=== PATIENT | female | born 1995 | race Caucasian/White ===

== ENCOUNTER 2016-09-24 21:35 | Emergency (ER) | payer OTHER ==
[~2016-09-24] VITALS: Ht 157.5 cm; Wt 66.0 kg
[~2016-09-24 21:35] MED LIST: ALPR-475 PO; CETI10CA PO; CLON0.5T PO; DICY10CA3 PO; FERR140T2 PO; FERR325T20 PO; HYDR-3150 PO; ONDA4TAB7 PO; PRED10TA PO; PRED5TAB19 PO; RANI150T8 PO
[2016-09-24] MEDS ORDERED: ABAT125S IV (22:45)
[2016-09-24] MEDS ORDERED: SODIUM CHLORIDE FLUSH 10ML SYR IVF ONE (23:00)
[2016-09-24] MEDS ORDERED: ONDANSETRON 2MG/ML, 2ML IVPush ONE (23:00)
[2016-09-24] MEDS ORDERED: MORPHINE SULFATE 4 MG/ML, 1ML IVPush PRN (23:00)
[2016-09-24] MEDS ORDERED: SODIUM CHLORIDE 0.9% 1,000ML IVBOLUS ONE (23:00)
[2016-09-24] MEDS ORDERED: ONDANSETRON 2MG/ML, 2ML ONE (23:06)
[2016-09-24] MEDS ORDERED: HYDROcodone/APAP 5/325 TABLET ONE (23:12)
[2016-09-24 23:13] LABS: HEMOGLOBIN 13.3 g/dL (11.7-16.4)
[2016-09-24 23:28] LABS: ASPARTATE AMINO TRANSFERASE 14 U/L (15-37); BLOOD UREA NITROGEN 15 mg/dL (7-18)
[2016-09-24] MEDS ORDERED: HYDROcodone/APAP 5/325 TABLET PO ONE (23:30)
[2016-09-24 23:48] LABS: DAU SCREEN DISCLAIMER
[2016-09-24] MEDS ORDERED: HYDROmorphone 1 MG/ML, 1ML ONE (23:50)
[2016-09-24 23:57] LABS: HCG UR OBC PASS
[2016-09-25] MEDS ORDERED: HYDROmorphone 1 MG/ML, 1ML IVPush PRN
[2016-09-25] MEDS ORDERED: ONDANSETRON ODT 4 MG PO ONE (01:30)
[2016-09-25] MEDS ORDERED: ONDANSETRON ODT 4 MG ONE (01:33)
[2016-09-25 01:59] VITALS: BP 122/63
== END 2016-09-25 02:03 | disposition home or self-care (01) ==
LOC: ED 23:20
DX: K62.5 Hemorrhage of anus and rectum (principal); R10.84 Generalized abdominal pain
CPT/HCPCS: 36415; 74022; 80053; 80307; 81003; 81025; 83690; 85025; 96361; 96374; 96375; 99285; J1170; J2405; J7030

== ENCOUNTER → 2017-01-25 | Outpatient (CLI) | payer OTHER ==
[~2017-01-25] MED LIST changes: +ABAT125S IV
== END | disposition home or self-care (01) ==
LOC: CFH 08:51
PROVIDERS: ATTEND Internal Medicine Gastroenterology
DX: Z13.820 Encounter for screening for osteoporosis (principal); M85.88 Other specified disorders of bone density and structure, other site; K52.9 Noninfective gastroenteritis and colitis, unspecified; F41.9 Anxiety disorder, unspecified; E24.2 Drug-induced Cushing's syndrome; G47.00 Insomnia, unspecified; D50.9 Iron deficiency anemia, unspecified; F32.9 Major depressive disorder, single episode, unspecified; Z79.52 Long term (current) use of systemic steroids
CPT/HCPCS: 77080

== ENCOUNTER 2017-02-27 11:22 | Emergency (ER) | payer OTHER ==
[~2017-02-27] VITALS: Ht 157.5 cm; Wt 73.4 kg
[~2017-02-27 11:22] MED LIST changes: +FERR325T18 PO; -FERR325T20 PO
[2017-02-27] MEDS ORDERED: FERR325T18 PO (11:53)
[2017-02-27] MEDS ORDERED: HYDROmorphone 1 MG/ML, 1ML ONE (12:16)
[2017-02-27] MEDS ORDERED: ONDANSETRON 2MG/ML, 2ML ONE (12:18)
[2017-02-27] MEDS ORDERED: SODIUM CHLORIDE FLUSH 10ML SYR IVF ONE (12:30)
[2017-02-27] MEDS ORDERED: HYDROmorphone 1 MG/ML, 1ML IVPush PRN (12:30)
[2017-02-27] MEDS ORDERED: SODIUM CHLORIDE 0.9% 1,000ML IVBOLUS ONE (12:30)
[2017-02-27] MEDS ORDERED: ONDANSETRON 2MG/ML, 2ML IVPush ONE (12:30)
[2017-02-27 12:49] LABS: HEMATOCRIT 41.4 % (34.6-47.8); HEMOGLOBIN 14.1 g/dL (11.7-16.4); WHITE BLOOD COUNT 6.1 x10^3/uL (3.4-10)
[2017-02-27 13:00] LABS: ASPARTATE AMINO TRANSFERASE 13 U/L (15-37); BLOOD UREA NITROGEN 9 mg/dL (7-18)
[2017-02-27] MEDS ORDERED: methylPREDNISolone SOD SUCC 125 MG/2 ML ONE (13:36)
[2017-02-27 13:54] VITALS: BP 122/78
[2017-02-27] MEDS ORDERED: methylPREDNISolone SOD SUCC 125 MG/2 ML IVPush ONE (14:00)
== END 2017-02-27 14:04 | disposition home or self-care (01) ==
LOC: ED 12:50
DX: K51.90 Ulcerative colitis, unspecified, without complications (principal)
CPT/HCPCS: 36415; 80053; 81001; 85025; 87081; 87086; 87880; 96361; 96374; 96375; 99284; J1170; J2405; J7030

== ENCOUNTER 2018-03-07 14:10 | Emergency (ER) | payer OTHER ==
[~2018-03-07] VITALS: Ht 157.5 cm; Wt 62.1 kg
[~2018-03-07 14:10] MED LIST changes: -FERR140T2 PO; +FERR140T3 PO; +RANI150T23 PO; -RANI150T8 PO
[2018-03-07] MEDS ORDERED: ONDANSETRON ODT 4 MG ONE (14:40)
[2018-03-07] MEDS ORDERED: DICYCLOMINE 10 MG/ML, 2ML ONE (14:40)
[2018-03-07 14:49] LABS: MICROSCOPIC AUTO
[2018-03-07 14:51] VITALS: BP 97/45
[2018-03-07 14:53] LABS: CULTURE INDICATED? YES
[2018-03-07] MEDS ORDERED: ALPR-475 PO (14:54)
[2018-03-07] MEDS ORDERED: SODIUM CHLORIDE FLUSH 10ML SYR IVF ONE (15:00)
[2018-03-07] MEDS ORDERED: SODIUM CHLORIDE 0.9% 1,000ML IVBOLUS ONE (15:00)
[2018-03-07] MEDS ORDERED: DICYCLOMINE 10 MG/ML, 2ML IM ONE (15:00)
[2018-03-07] MEDS ORDERED: ONDANSETRON ODT 4 MG PO ONE (15:00)
[2018-03-07 15:01] LABS: BASOPHILS # (AUTO) 0.06 x10^3/uL (0-0.1); BASOPHILS % (AUTO) 1 % (0-1); EOSINOPHILS # (AUTO) 0.08 x10^3/uL (0-0.4); EOSINOPHILS % (AUTO) 1 % (1-7); LYMPHOCYTES # (AUTO) 1.33 x10^3/uL (1-3.4); LYMPHOCYTES % (AUTO) 21 % (22-44); MD NO; MEAN CORPUSCULAR HGB CONC 34.5 g/dL (32.4-35.8); MEAN CORPUSCULAR VOLUME 89.8 fL (80-100); MEAN PLATELET VOLUME 8.1 fL (7.4-10.4); MONOCYTES # (AUTO) 0.52 x10^3/uL (0.2-0.8); MONOCYTES % (AUTO) 8 % (2-9); NEUTROPHILS # (AUTO) 4.22 x10^3/uL (1.8-6.8); NEUTROPHILS % (AUTO) 68 % (42-75); PLATELET COUNT 508 x10^3/uL (130-400); RED BLOOD COUNT 4.87 x10^6/uL (3.82-5.3); RED CELL DISTRIBUTION WIDTH 12.1 % (9.6-15.2)
[2018-03-07 15:20] LABS: ALANINE AMINOTRANSFERASE 23 U/L (12-78); ALBUMIN 3.4 g/dL (3.4-5.0); ANION GAP 11 mmol/L (5-15); CALCIUM 9.1 mg/dL (8.5-10.1); CHLORIDE 102 mmol/L (98-107); CREATININE 0.77 mg/dL (0.55-1.02)
[2018-03-07 15:25] LABS: ALKALINE PHOSPHATASE 250 U/L (45-117); BILIRUBIN,TOTAL 0.4 mg/dL (0.2-1.0); TOTAL PROTEIN 8.4 g/dL (6.4-8.2)
[2018-03-07 15:34] LABS: CLOSTRIDIUM DIFFICILE ANTIGEN NEGATIVE; CLOSTRIDIUM DIFFICILE TOXIN NEGATIVE (Negative)
== END 2018-03-07 15:51 | disposition home or self-care (01) ==
LOC: ED 15:02
DX: R19.7 Diarrhea, unspecified (principal); R10.84 Generalized abdominal pain; K50.90 Crohn's disease, unspecified, without complications; R11.0 Nausea; Z43.2 Encounter for attention to ileostomy
CPT/HCPCS: 36415; 80053; 81001; 83690; 84703; 85025; 87086; 87324; 89055; 96360; 96372; 99284; J0500; J7030; Q0162

== ENCOUNTER 2018-05-01 10:40 | Emergency (ER) | payer OTHER ==
[~2018-05-01] VITALS: Ht 157.5 cm; Wt 58.6 kg
[2018-05-01 11:18] VITALS: BP 120/89
[2018-05-01 12:03] LABS: BASOPHILS # (AUTO) 0.02 x10^3/uL (0-0.1); BASOPHILS % (AUTO) 0 % (0-1); EOSINOPHILS # (AUTO) 0.04 x10^3/uL (0-0.4); EOSINOPHILS % (AUTO) 1 % (1-7); LYMPHOCYTES # (AUTO) 0.62 x10^3/uL (1-3.4); LYMPHOCYTES % (AUTO) 14 % (22-44); MD NO; MEAN CORPUSCULAR HEMOGLOBIN 30.7 pg (27.0-34.8); MEAN CORPUSCULAR HGB CONC 33.9 g/dL (32.4-35.8); MEAN CORPUSCULAR VOLUME 90.8 fL (80-100); MEAN PLATELET VOLUME 8.1 fL (7.4-10.4); MONOCYTES # (AUTO) 0.28 x10^3/uL (0.2-0.8); MONOCYTES % (AUTO) 6 % (2-9); NEUTROPHILS # (AUTO) 3.59 x10^3/uL (1.8-6.8); NEUTROPHILS % (AUTO) 79 % (42-75); PLATELET COUNT 415 x10^3/uL (130-400); RED BLOOD COUNT 5.29 x10^6/uL (3.82-5.3); RED CELL DISTRIBUTION WIDTH 14.4 % (9.6-15.2)
[2018-05-01 12:10] LABS: ALANINE AMINOTRANSFERASE 37 U/L (12-78); ALBUMIN 4.1 g/dL (3.4-5.0); ANION GAP 10 mmol/L (5-15); CALCIUM 9.3 mg/dL (8.5-10.1); CHLORIDE 100 mmol/L (98-107)
[2018-05-01 12:15] LABS: ALKALINE PHOSPHATASE 223 U/L (45-117); BILIRUBIN,TOTAL 0.5 mg/dL (0.2-1.0); CREATININE 1.02 mg/dL (0.55-1.02); TOTAL PROTEIN 8.9 g/dL (6.4-8.2)
[2018-05-01] MEDS ORDERED: MAALOX/HYOSCYAMINE/LIDOCAINE 45 ML BTL PO ONE (12:30)
[2018-05-01] MEDS ORDERED: ONDANSETRON ODT 8 MG PO ONE (12:30)
[2018-05-01 12:56] LABS: MICROSCOPIC INDICATED
[2018-05-01 13:07] LABS: CULTURE INDICATED? YES
[2018-05-01] MEDS ORDERED: ONDANSETRON ODT 8 MG ONE (13:24)
[2018-05-01] MEDS ORDERED: MAALOX/HYOSCYAMINE/LIDOCAINE 45 ML BTL ONE (13:24)
[2018-05-01] MEDS ORDERED: BACITRACIN ZINC OINT 500U/GM, 0.9 GM ONE (13:35)
== END 2018-05-01 13:50 | disposition home or self-care (01) ==
LOC: ED 12:44
DX: K92.1 Melena (principal); R10.84 Generalized abdominal pain; Z88.5 Allergy status to narcotic agent; Z88.6 Allergy status to analgesic agent; Z90.49 Acquired absence of other specified parts of digestive tract
CPT/HCPCS: 36415; 74021; 80053; 81001; 84703; 85025; 87086; 99284; Q0162

== ENCOUNTER 2018-05-05 07:49 | Emergency (ER) | payer OTHER ==
[~2018-05-05] VITALS: Ht 157.5 cm; Wt 57.2 kg
[2018-05-05] MEDS ORDERED: DICYCLOMINE 10 MG/ML, 2ML ONE (08:24)
[2018-05-05] MEDS ORDERED: METOCLOPRAMIDE 5 MG/ML, 2ML ONE (08:24)
[2018-05-05] MEDS ORDERED: SODIUM CHLORIDE 0.9% 1,000ML IVBOLUS ONE (08:30)
[2018-05-05] MEDS ORDERED: METOCLOPRAMIDE 5 MG/ML, 2ML IVPush ONE (08:30)
[2018-05-05] MEDS ORDERED: DICYCLOMINE 10 MG/ML, 2ML IM ONE (08:30)
[2018-05-05] MEDS ORDERED: SODIUM CHLORIDE FLUSH 10ML SYR IVF ONE (08:30)
[2018-05-05] MEDS ORDERED: PROMETHAZINE 25 MG/ML, 1ML ONE (09:12)
[2018-05-05 09:21] LABS: BASOPHILS # (AUTO) 0.02 x10^3/uL (0-0.1); BASOPHILS % (AUTO) 1 % (0-1); EOSINOPHILS # (AUTO) 0.06 x10^3/uL (0-0.4); EOSINOPHILS % (AUTO) 2 % (1-7); LYMPHOCYTES # (AUTO) 0.88 x10^3/uL (1-3.4); LYMPHOCYTES % (AUTO) 23 % (22-44); MD NO; MEAN CORPUSCULAR HEMOGLOBIN 30.1 pg (27.0-34.8); MEAN CORPUSCULAR HGB CONC 33.7 g/dL (32.4-35.8); MEAN CORPUSCULAR VOLUME 89.4 fL (80-100); MEAN PLATELET VOLUME 8.5 fL (7.4-10.4); MONOCYTES # (AUTO) 0.37 x10^3/uL (0.2-0.8); MONOCYTES % (AUTO) 10 % (2-9); NEUTROPHILS % (AUTO) 65 % (42-75); PLATELET COUNT 396 x10^3/uL (130-400); RED BLOOD COUNT 5.21 x10^6/uL (3.82-5.3); RED CELL DISTRIBUTION WIDTH 14.6 % (9.6-15.2)
[2018-05-05] MEDS ORDERED: PROMETHAZINE 25 MG/ML, 1ML IM ONE (09:30)
[2018-05-05 09:31] LABS: ALANINE AMINOTRANSFERASE 23 U/L (12-78); ALBUMIN 4.1 g/dL (3.4-5.0); ANION GAP 12 mmol/L (5-15); CALCIUM 9.5 mg/dL (8.5-10.1); CHLORIDE 94 mmol/L (98-107); CREATININE 1.25 mg/dL (0.55-1.02)
[2018-05-05 09:32] LABS: MICROSCOPIC INDICATED
[2018-05-05 09:33] LABS: CULTURE INDICATED? YES
[2018-05-05 09:35] LABS: ALKALINE PHOSPHATASE 240 U/L (45-117); BILIRUBIN,TOTAL 0.7 mg/dL (0.2-1.0); TOTAL PROTEIN 9.2 g/dL (6.4-8.2)
[2018-05-05 09:56] LABS: CLOSTRIDIUM DIFFICILE ANTIGEN NEGATIVE; CLOSTRIDIUM DIFFICILE TOXIN NEGATIVE (Negative)
[2018-05-05] MEDS ORDERED: OMNIPAQUE 350 MG/ML, 100ML BOTTLE ONE (10:02)
[2018-05-05 11:31] VITALS: BP 100/65
== END 2018-05-05 12:10 | disposition home or self-care (01) ==
LOC: ED 08:24
DX: K51.911 Ulcerative colitis, unspecified with rectal bleeding (principal); Z88.5 Allergy status to narcotic agent
CPT/HCPCS: 36415; 74177; 80053; 81001; 83605; 83690; 84703; 85025; 87086; 87324; 89055; 96360; 96372; 99284; J0500; J2550; J7030; Q9967